=== PATIENT | female | born 1985 | race Two or more races ===

== ENCOUNTER 2024-03-16 10:08 | Outpatient (CLI) | payer OTHER | END 2024-03-16 10:11 | disposition home or self-care (01) | LOC: MAMO-SONO 10:08 | PROVIDERS: ATTEND Radiology Diagnostic Radiology | DX: N60.11 Diffuse cystic mastopathy of right breast (principal); N60.12 Diffuse cystic mastopathy of left breast; R10.2 Pelvic and perineal pain; Z12.31 Encounter for screening mammogram for malignant neoplasm of breast ==